=== PATIENT | female | born 1965 | race Asian ===

== ENCOUNTER 2017-03-06 12:01 | Inpatient (IN) | payer OTHER ==
[~2017-03-06] VITALS: Ht 157.5 cm; Wt 85.0 kg
[2017-03-06] MEDS ORDERED: SODIUM CHLORIDE 0.9% 1,000ML IVBOLUS ONE ×2 (12:30→14:00)
[2017-03-06] MEDS ORDERED: ONDANSETRON 2MG/ML, 2ML IVPush ONE (12:30)
[2017-03-06] MEDS ORDERED: SODIUM CHLORIDE FLUSH 10ML SYR IVF ONE (12:30)
[2017-03-06] MEDS ORDERED: ACETAMINOPHEN 500 MG TABLET PO ONE (12:30)
[2017-03-06 12:34] LABS: HEMOGLOBIN 15.4 g/dL (11.7-16.4)
[2017-03-06 13:16] LABS: BLOOD UREA NITROGEN 13 mg/dL (7-18)
[2017-03-06] MEDS ORDERED: ACETAMINOPHEN 500 MG TABLET ONE (13:43)
[2017-03-06] MEDS ORDERED: CEFTRIAXONE PMX 1GM/50ML 50 ML IVPB ONE (14:00)
[2017-03-06] MEDS ORDERED: CEFTRIAXONE PMX 1GM/50ML 50 ML ONE (15:08)
[2017-03-06] MEDS ORDERED: IBUPROFEN 200 MG TABLET ONE (15:09)
[2017-03-06] MEDS ORDERED: IBUPROFEN 200 MG TABLET PO ONE (15:30)
[2017-03-06] MEDS ORDERED: SODIUM CHLORIDE 0.9% 1,000 ML IV SCH (17:15)
[2017-03-06] MEDS ORDERED: OXYcodone IR 5MG TABLET PO PRN (17:30)
[2017-03-06] MEDS ORDERED: HEPARIN 5,000 UNITS/ML, 1ML SQ SCH (17:30)
[2017-03-06] MEDS ORDERED: ENALAPRILAT 1.25 MG/ML, 2ML IVPush PRN (17:30)
[2017-03-06] MEDS ORDERED: ONDANSETRON 2MG/ML, 2ML IVPush PRN (17:30)
[2017-03-06] MEDS ORDERED: hydrALAzine 20 MG/ML, 1ML IVPush PRN (17:30)
[2017-03-06] MEDS ORDERED: morphine SULFATE 10 MG/ML, 1ML IVPush PRN (17:30)
[2017-03-06] MEDS ORDERED: CEFTRIAXONE PMX 1GM/50ML 50 ML IV SCH (17:30)
[2017-03-06] MEDS ORDERED: BISACODYL 10 MG SUPP PR PRN (17:30)
[2017-03-06] MEDS ORDERED: POLYETHYLENE GLYCOL 17 GM PACKET PO PRN (17:30)
[2017-03-06] MEDS ORDERED: morphine SULFATE 10 MG/ML, 1ML ONE (20:44)
[2017-03-06] MEDS ORDERED: ONDANSETRON 2MG/ML, 2ML ONE (20:45)
[2017-03-06] MEDS ORDERED: HEPARIN 5,000 UNITS/ML, 1ML ONE (20:45)
[2017-03-07] MEDS ORDERED: CEFTRIAXONE PMX 1GM/50ML 50 ML ONE (02:09)
[2017-03-07] MEDS: CEFTRIAXONE PMX 1GM/50ML 50 ML IV SCH ×2 (02:15→16:27)
[2017-03-07] MEDS ORDERED: HEPARIN 5,000 UNITS/ML, 1ML ONE (05:05)
[2017-03-07] MEDS: HEPARIN 5,000 UNITS/ML, 1ML SQ SCH ×3 (05:12→22:09)
[2017-03-07 05:37] LABS: BLOOD UREA NITROGEN 15 mg/dL (7-18); HEMATOCRIT 39.8 % (34.6-47.8); HEMOGLOBIN 13.3 g/dL (11.7-16.4); WHITE BLOOD COUNT 12.6 x10^3/uL (3.4-10)
[2017-03-07 05:39] LABS: ASPARTATE AMINO TRANSFERASE 11 U/L (15-37)
[2017-03-07] MEDS ORDERED: ACETAMINOPHEN 500 MG TABLET ONE (10:27)
[2017-03-07] MEDS: ACETAMINOPHEN 325 MG TABLET PO PRN ×2 (10:31→18:09)
[2017-03-07 10:32] VITALS: BP 152/91
[2017-03-07 12:51] VITALS: BP 108/74
[2017-03-07] MEDS: POTASSIUM CHLORIDE 20 MEQ TAB.ER.PRT PO SCH (16:35)
[2017-03-07 20:00] VITALS: BP 121/82
[2017-03-08 02:00] VITALS: BP 144/90
[2017-03-08] MEDS: CEFTRIAXONE PMX 1GM/50ML 50 ML IV SCH ×2 (05:26→17:29)
[2017-03-08] MEDS: HEPARIN 5,000 UNITS/ML, 1ML SQ SCH ×3 (05:26→21:11)
[2017-03-08 05:29] LABS: HEMATOCRIT 37.5 % (34.6-47.8); HEMOGLOBIN 12.5 g/dL (11.7-16.4); WHITE BLOOD COUNT 9.6 x10^3/uL (3.4-10)
[2017-03-08 05:43] LABS: BLOOD UREA NITROGEN 11 mg/dL (7-18)
[2017-03-08 07:12] VITALS: BP 147/100
[2017-03-08] MEDS: POTASSIUM CHLORIDE 20 MEQ TAB.ER.PRT PO SCH (09:02)
[2017-03-08 13:40] VITALS: BP 135/96
[2017-03-08 20:00] VITALS: BP 149/99
[2017-03-08] MEDS: DOCUSATE 100 MG CAPSULE PO PRN (21:11)
[2017-03-09 01:40] VITALS: BP 130/82
[2017-03-09] MEDS: CEFTRIAXONE PMX 1GM/50ML 50 ML IV SCH (05:29)
[2017-03-09] MEDS: HEPARIN 5,000 UNITS/ML, 1ML SQ SCH ×2 (05:29→13:30)
[2017-03-09 06:30] VITALS: BP 141/90
[2017-03-09] MEDS: DOCUSATE 100 MG CAPSULE PO PRN (09:35)
[2017-03-09 13:03] VITALS: BP 161/110
[2017-03-09] MEDS ORDERED: SULF1TAB24 PO (13:40)
[2017-03-09] MEDS ORDERED: ATOR10TA PO (13:40)
== END 2017-03-09 14:59 | disposition home or self-care (01) | DRG 871 ==
LOC: ED 15:18 → EDIP 16:10 → 4WST 03-07 08:45 → DCLOUNGE 03-09 14:41
PROVIDERS: ADMIT Hospitalist; ATTEND Family Medicine
DX: A41.9 Sepsis, unspecified organism (principal); N17.0 Acute kidney failure with tubular necrosis; N12 Tubulo-interstitial nephritis, not specified as acute or chronic; E78.00 Pure hypercholesterolemia, unspecified; E78.5 Hyperlipidemia, unspecified; G43.909 Migraine, unspecified, not intractable, without status migrainosus; I10 Essential (primary) hypertension; R65.20 Severe sepsis without septic shock; Z90.710 Acquired absence of both cervix and uterus; Z88.0 Allergy status to penicillin
CPT/HCPCS: 36415; 71010; 80048; 80053; 80061; 81001; 82040; 83036; 83605; 83735; 84439; 84443; 85025; 87040; 87086; 96361; 96365; 96366; J0696; J1644; J2405; J7030

== ENCOUNTER 2020-04-09 19:25 | Inpatient (IN) | payer OTHER ==
[~2020-04-09] VITALS: Ht 157.5 cm; Wt 81.3 kg
[~2020-04-09 19:25] MED LIST: ATOR10TA PO; SULF1TAB24 PO
--- NOTE | 2020-04-09 19:48 | NUR ---
PT moved to room 30 via wheelchair, mild distress and weakness. placed on cr monitor, in gurney and gown on. pt calm and cooperative. good aeration and oxygenation at this time. on o2 nc 2 lpm, o2 sats 97%.
[2020-04-09] MEDS ORDERED: LIDOCAINE-MPF 1%, 5ML ONE (19:55)
[2020-04-09] MEDS ORDERED: BUPIVACAINE 0.25% ONE (19:55)
[2020-04-09] MEDS ORDERED: LIDOCAINE 1%, 10ML INFIL ONE (20:00)
[2020-04-09] MEDS ORDERED: BUPIVACAINE 0.25% INFIL ONE (20:00)
[2020-04-09] MEDS ORDERED: IBUPROFEN 800 MG TABLET ONE (20:13)
--- NOTE | 2020-04-09 20:16 | NUR ---
PT MEDICATED PER JUN. X RAY IN WITH PT AT THIS TIME
[2020-04-09] MEDS ORDERED: IBUPROFEN 800 MG TABLET PO ONE (20:30)
[2020-04-09] MEDS ORDERED: DOXYCYCLINE 100MG TABLET ONE (20:46)
[2020-04-09] MEDS ORDERED: DEXAMETHASONE 4 MG/ML, 1ML ONE (20:46)
[2020-04-09] MEDS ORDERED: CEFTRIAXONE PMX 1GM/50ML 50 ML ONE (20:46)
--- NOTE | 2020-04-09 20:58 | NUR ---
PT TO BE ADMITTED. PT EDUCATED ON PLAN OF CARE
[2020-04-09] MEDS ORDERED: DOXYCYCLINE 100MG TABLET PO ONE (21:00)
[2020-04-09] MEDS ORDERED: DEXAMETHASONE 4 MG/ML, 1ML IVPush ONE (21:00)
[2020-04-09] MEDS ORDERED: CEFTRIAXONE PMX 1GM/50ML 50 ML IVPB ONE (21:00)
--- NOTE | 2020-04-09 21:05 | NUR ---
ABX GIVEN AFTER BLOOD CULTURES DRAWN
[2020-04-09 21:21] LABS: BASOPHILS % (AUTO) 0 % (0-1); EOSINOPHILS % (AUTO) 0 % (1-7); LYMPHOCYTES % (AUTO) 5 % (22-44); MEAN CORPUSCULAR HEMOGLOBIN 29.2 pg (27.0-34.8); MEAN CORPUSCULAR HGB CONC 34.3 g/dL (32.4-35.8); MEAN PLATELET VOLUME 7.9 fL (7.4-10.4); MONOCYTES % (AUTO) 6 % (2-9); NEUTROPHILS % (AUTO) 89 % (42-75); PLATELET COUNT 272 x10^3/uL (130-400); RED BLOOD COUNT 5.41 x10^6/uL (3.82-5.3); RED CELL DISTRIBUTION WIDTH 13.3 % (9.6-15.2)
[2020-04-09 21:26] LABS: ALANINE AMINOTRANSFERASE 71 U/L (12-78); ALBUMIN 2.9 g/dL (3.4-5.0); ANION GAP 8 mmol/L (5-15); CALCIUM 8.9 mg/dL (8.5-10.1); CHLORIDE 99 mmol/L (98-107); CREATININE 1.18 mg/dL (0.55-1.02)
[2020-04-09 21:33] LABS: ALKALINE PHOSPHATASE 120 U/L (45-117); BILIRUBIN,TOTAL 0.7 mg/dL (0.2-1.0); D-DIMER (DIC) 0.58 ug/mlFEU (0.00-0.52)
[2020-04-09 22:06] LABS: MD SCAN
--- NOTE | 2020-04-09 23:22 | NUR ---
PT MOVED TO HOSPITAL BED, AWAITING ADMITTING MD.
[2020-04-10] MEDS ORDERED: DOCUSATE 100 MG CAPSULE PO PRN
[2020-04-10] MEDS ORDERED: ONDANSETRON 2MG/ML, 2ML IVPush PRN
[2020-04-10] MEDS ORDERED: morphine SULFATE 10 MG/ML, 1ML IVPush PRN
[2020-04-10] MEDS ORDERED: ACETAMINOPHEN 325 MG TABLET PO PRN
[2020-04-10] MEDS ORDERED: POLYETHYLENE GLYCOL 17 GM PACKET PO PRN
[2020-04-10] MEDS ORDERED: ENOXAPARIN 40 MG/0.4 ML SQ SCH
[2020-04-10] MEDS ORDERED: ONDANSETRON ODT 4 MG PO PRN
[2020-04-10] MEDS ORDERED: BISACODYL 10 MG SUPP PR PRN
[2020-04-10] MEDS ORDERED: OXYcodone IR 5MG TABLET PO PRN
[2020-04-10] MEDS ORDERED: PROMETHAZINE 25 MG/ML, 1ML IM PRN
[2020-04-10] MEDS ORDERED: hydrALAzine 20 MG/ML, 1ML IVPush PRN
[2020-04-10] MEDS ORDERED: ENOXAPARIN 40 MG/0.4 ML ONE ×2 (00:10→08:02)
[2020-04-10] MEDS ORDERED: ASCORBIC ACID 500 MG TABLET ONE ×3 (00:10→17:32)
[2020-04-10] MEDS ORDERED: MELATONIN 5 MG TABLET ONE (00:11)
[2020-04-10] MEDS: ASCORBIC ACID 500 MG TABLET PO SCH ×4 (00:17→22:39)
[2020-04-10] MEDS: SODIUM CHLORIDE 0.9% 1,000 ML IV SCH ×2 (00:17→10:18)
[2020-04-10] MEDS: MELATONIN 5 MG TABLET PO SCH ×2 (00:17→22:39)
--- NOTE | 2020-04-10 00:20 | NUR ---
PT PLACED ON HOSPITAL BED AND MEDICATED PER EMAR. VSS AND WILL CONT TO MONITOR.
--- NOTE | 2020-04-10 02:31 | NUR ---
PT SLEEPING ON HOSPITAL BED, NO ACUTE DISTRESS NOTED. VSS AND WILL CONT TO MONITOR.
--- NOTE | 2020-04-10 03:46 | NUR ---
PT SLEEPING, VSS, NO ACUTE DISTRESS NOTED. WILL CONT TO MONITOR.
--- NOTE | 2020-04-10 04:49 | NUR ---
Lab drawing blood, pt has no complaints at this time. VSS, o2 sats remain greater 95% on 2L. Pt is waiting for room upstairs. Her covid test was swabbed through [facility] and is pending with them, she was not reswabbed here.
[2020-04-10 05:27] LABS: BASOPHILS % (AUTO) 0 % (0-1); EOSINOPHILS % (AUTO) 0 % (1-7); LYMPHOCYTES % (AUTO) 9 % (22-44); MEAN CORPUSCULAR HGB CONC 33.8 g/dL (32.4-35.8); MONOCYTES % (AUTO) 4 % (2-9); NEUTROPHILS % (AUTO) 88 % (42-75); PLATELET COUNT 251 x10^3/uL (130-400); RED CELL DISTRIBUTION WIDTH 13.2 % (9.6-15.2)
[2020-04-10 05:28] LABS: MD NO
[2020-04-10 05:36] LABS: CHLORIDE 103 mmol/L (98-107)
[2020-04-10 05:50] LABS: ALANINE AMINOTRANSFERASE 73 U/L (12-78); ALBUMIN 2.7 g/dL (3.4-5.0); ALKALINE PHOSPHATASE 114 U/L (45-117); ANION GAP 9 mmol/L (5-15); BILIRUBIN,TOTAL 0.4 mg/dL (0.2-1.0); CALCIUM 8.9 mg/dL (8.5-10.1); CHOLESTEROL, TOTAL 191 mg/dL (140-239); CREATININE 1.61 mg/dL (0.55-1.02); HDL CHOL % 20 % (28-40); HDL CHOLESTEROL (DIRECT) 38 mg/dL (40-60); LDL CHOLESTEROL,CALCULATED 113 mg/dL (54-169); TOTAL PROTEIN 7.3 g/dL (6.4-8.2); TRIGLYCERIDES 198 mg/dL (50-200); VLDL CHOLESTEROL 40 mg/dL (0-25)
--- NOTE | 2020-04-10 06:12 | NUR ---
Sleeping, No change in assessment. Will continue to monitor.
--- NOTE | 2020-04-10 06:46 | NUR ---
Report to PREETI Wang
--- NOTE | 2020-04-10 07:34 | NUR ---
REPORT FROM PREETI CLARK. PT LAYING BACK IN BED, RESPIRATIONS EVEN AND UNLABORED ON NC. NAD NOTED AT THIS TIME. PT REMAINS ASLEEP. AWAITING MEAL TRAY.
[2020-04-10] MEDS ORDERED: CHOLECALCIFEROL 5,000u TAB ONE (08:03)
[2020-04-10] MEDS ORDERED: DEXAMETHASONE 4 MG/ML, 1ML ONE (08:03)
[2020-04-10] MEDS ORDERED: ZINC SULFATE 220 MG CAPSULE ONE (08:04)
[2020-04-10] MEDS: AZITHROMYCIN 500 MG in SODIUM CHLORIDE 0.9% 250 ML IV SCH (08:15)
[2020-04-10] MEDS: CHOLECALCIFEROL 5,000u TAB PO SCH (08:16)
[2020-04-10] MEDS: ZINC SULFATE 220 MG CAPSULE PO SCH (08:16)
[2020-04-10] MEDS: DEXAMETHASONE 4 MG/ML, 1ML IVPush SCH (08:16)
--- NOTE | 2020-04-10 08:58 | NUR ---
REPORT TO PREETI ALBERTO.
--- NOTE | 2020-04-10 09:00 | NUR ---
PT EATING MEAL TRAY AT THIS TIME, VSS, DENIES NEEDS.
[2020-04-10] MEDS: ENOXAPARIN 40 MG/0.4 ML SQ SCH (10:18)
--- NOTE | 2020-04-10 10:21 | NUR ---
PT MEDICATED PER JUN, ADMITTING MD IN TO EVAL PT. NO NEW ORDERS AT THIS TIME.
--- NOTE | 2020-04-10 12:36 | NUR ---
MED REQUEST SENT TO PHARMACY FOR LAVERN RUBALCAVA
[2020-04-10] MEDS: INSULIN LISPRO 100 UNITS/ML, PEN SQ-INSULIN SCH ×3 (13:30→20:25)
--- NOTE | 2020-04-10 13:40 | NUR ---
LUNCH TRAY PROVIDED, PT MEDICATED WITH INSULIN PER MAR AND SS. NO OTHER NEEDS AT THIS TIME
--- NOTE | 2020-04-10 16:03 | NUR ---
PT. IS RESTING WITHOUT CONCERNS, CP MONITOR IN PLACE. PT. DENIES C/O PAIN. REPEAT BGL DONE BY REMY ÁLVAREZ. SIDERAILS REMAIN UP X 2 WITH THE CALL LIGHT IN PLACE. PT. IS ON A HOSPITAL BED.
--- NOTE | 2020-04-10 16:35 | NUR ---
PT. REQUESTED RN DIDI SPEAK WITH HER DAUGHTER CARMEN, WHO IS A COVID RN. PT. IS ASKING THAT CARMEN BE GIVEN HER MEDICAL INFORMATION. PT.'S DAUGHTER WAS UPDATED ON THE PT.'S LAB WORK AND CXR FINDINGS. DAUGHTER IS REQUESTING THAT THE PT. BE GIVEN AN IS. PT. WAS INSTRUCTED ON INCENTIVE SPIROMETER USE AND WAS ABLE TO COMPLETE 5 CYCLES. PT.'S DAUGHTER ALSO REQUESTING THAT THE HOSPITALIST BE CONTACTED FOR PRN NPPB TX WHICH WILL BE DONE. VITALS MONITORED. PT. HAS NO CONCERNS AT THIS TIME.
--- NOTE | 2020-04-10 17:46 | NUR ---
TASK RN: PT COVERED WITH INSULIN NOTED ON JUN AND PROVIDED DINNER
[2020-04-10] MEDS ORDERED: ALBUTEROL SULFATE 2.5 MG/3 ML NPPB PRN (18:30)
--- NOTE | 2020-04-10 18:31 | NUR ---
SPOKE WITH DR. CORDOBA ABOUT ALBUTEROL NEBS Q 4 HRS PRN. ORDERS RECEIVED AND CARRIED OUT. PT. IS EATING DINNER WITHOUT CONCERNS. MEDS GIVEN EARLIER BY ALYSE ÁLVAREZ.
--- NOTE | 2020-04-10 18:41 | NUR ---
PT. FINISHED HER MEAL AND IS RESTING WITHOUT CONCERNS. PT. REMAINS MONITORED. CALL LIGHT IS IN PLACE.
[2020-04-10] MEDS ORDERED: CEFTRIAXONE PMX 1GM/50ML 50 ML ONE (19:40)
[2020-04-10] MEDS: CEFTRIAXONE PMX 1GM/50ML 50 ML IV SCH (20:22)
--- NOTE | 2020-04-10 20:23 | NUR ---
PT.'S BGL CHECKED. 213. PT. HAS IV ROCEPHIN INFUSING AND REMAINS MONITORED. PT. IS USING THE BEDSIDE COMMODE. NO C/O PAIN OR DISCOMFORT AT THIS TIME.
--- NOTE | 2020-04-10 20:31 | NUR ---
INSULIN CHECKED BY 2 RNS AND GIVEN ORDERED.
[2020-04-10 22:29] VITALS: BP 146/95
[2020-04-11 01:41] VITALS: BP 136/91
[2020-04-11 05:49] LABS: ANION GAP 6 mmol/L (5-15); CHLORIDE 109 mmol/L (98-107)
[2020-04-11 05:50] LABS: CREATININE 0.86 mg/dL (0.55-1.02)
[2020-04-11] MEDS: ALBUTEROL HFA 90 MCG/SPRAY INH PRN ×2 (06:05→20:50)
[2020-04-11] MEDS: INSULIN LISPRO 100 UNITS/ML, PEN SQ-INSULIN SCH ×4 (07:00→20:35)
[2020-04-11 07:02] VITALS: BP 143/94
[2020-04-11] MEDS ORDERED: POTASSIUM CHLORIDE 20 MEQ TAB.ER.PRT PO ONE (07:30)
[2020-04-11] MEDS: ASCORBIC ACID 500 MG TABLET PO SCH ×3 (08:35→20:45)
[2020-04-11] MEDS: ZINC SULFATE 220 MG CAPSULE PO SCH (08:35)
[2020-04-11] MEDS: CHOLECALCIFEROL 5,000u TAB PO SCH (08:35)
[2020-04-11] MEDS: ENOXAPARIN 40 MG/0.4 ML SQ SCH (08:36)
[2020-04-11] MEDS: DEXAMETHASONE 4 MG/ML, 1ML IVPush SCH (08:36)
[2020-04-11] MEDS: AZITHROMYCIN 500 MG in SODIUM CHLORIDE 0.9% 250 ML IV SCH (09:00)
[2020-04-11] MEDS ORDERED: INSULIN NPH HUMAN 100 UNIT/ML, 3ML VIAL SQ-INSULIN SCH (12:30)
[2020-04-11 13:55] VITALS: BP 127/86
[2020-04-11] MEDS ORDERED: ASCORBIC ACID 250 MG TAB ONE (20:20)
[2020-04-11] MEDS: INSULIN GLARGINE 100 UNITS/ML, PEN SQ-INSULIN SCH (20:35)
[2020-04-11] MEDS: MELATONIN 5 MG TABLET PO SCH (20:45)
[2020-04-11] MEDS: CEFTRIAXONE PMX 1GM/50ML 50 ML IV SCH (20:45)
[2020-04-11 20:50] VITALS: BP 163/106
[2020-04-11 22:30] VITALS: BP 111/78
[2020-04-12 00:20] VITALS: BP 119/86
[2020-04-12 06:47] VITALS: BP 136/87
[2020-04-12] MEDS ORDERED: POTASSIUM CHLORIDE 20 MEQ TAB.ER.PRT PO ONE (07:00)
[2020-04-12] MEDS: AZITHROMYCIN 500 MG in SODIUM CHLORIDE 0.9% 250 ML IV SCH (08:43)
[2020-04-12] MEDS: ENOXAPARIN 40 MG/0.4 ML SQ SCH (08:43)
[2020-04-12] MEDS: INSULIN LISPRO 100 UNITS/ML, PEN SQ-INSULIN SCH ×4 (08:51→21:12)
[2020-04-12 12:00] LABS: RAPID INFLUENZA A Negative (Negative); RAPID INFLUENZA B Negative (Negative)
[2020-04-12 12:22] VITALS: BP 140/96
[2020-04-12] MEDS: CEFDINIR 300 MG CAPSULE PO SCH ×2 (12:29→21:11)
[2020-04-12 19:09] VITALS: BP 154/95
[2020-04-12] MEDS: MELATONIN 5 MG TABLET PO SCH (21:11)
[2020-04-12] MEDS: INSULIN GLARGINE 100 UNITS/ML, PEN SQ-INSULIN SCH (21:14)
[2020-04-13 01:47] VITALS: BP 153/92
[2020-04-13 06:50] VITALS: BP 152/108
[2020-04-13] MEDS: INSULIN LISPRO 100 UNITS/ML, PEN SQ-INSULIN SCH ×2 (07:52→12:22)
[2020-04-13] MEDS: ENOXAPARIN 40 MG/0.4 ML SQ SCH (07:53)
[2020-04-13] MEDS: CEFDINIR 300 MG CAPSULE PO SCH (07:53)
[2020-04-13 08:21] LABS: BASOPHILS % (AUTO) 0 % (0-1); EOSINOPHILS % (AUTO) 1 % (1-7); LYMPHOCYTES % (AUTO) 18 % (22-44); MEAN CORPUSCULAR HEMOGLOBIN 29.1 pg (27.0-34.8); MEAN CORPUSCULAR HGB CONC 33.9 g/dL (32.4-35.8); MEAN PLATELET VOLUME 7.1 fL (7.4-10.4); MONOCYTES % (AUTO) 14 % (2-9); NEUTROPHILS % (AUTO) 68 % (42-75); PLATELET COUNT 369 x10^3/uL (130-400); RED BLOOD COUNT 5.15 x10^6/uL (3.82-5.3); RED CELL DISTRIBUTION WIDTH 13.1 % (9.6-15.2)
[2020-04-13 08:23] LABS: MD NO
[2020-04-13 08:34] LABS: ALANINE AMINOTRANSFERASE 61 U/L (12-78); ANION GAP 6 mmol/L (5-15); CALCIUM 9.2 mg/dL (8.5-10.1); CHLORIDE 109 mmol/L (98-107)
[2020-04-13 08:36] LABS: ALKALINE PHOSPHATASE 83 U/L (45-117); BILIRUBIN,TOTAL 0.7 mg/dL (0.2-1.0); TOTAL PROTEIN 6.9 g/dL (6.4-8.2)
[2020-04-13] MEDS ORDERED: AZITHROMYCIN 250 MG TABLET PO SCH (09:00)
[2020-04-13] MEDS ORDERED: ALBU18HF INH (09:18)
[2020-04-13] MEDS ORDERED: CEFD300C37 PO (09:18)
[2020-04-13] MEDS ORDERED: METF750T42 PO (09:18)
[2020-04-13] MEDS ORDERED: AMLO-150 PO (09:18)
[2020-04-13] MEDS ORDERED: ATOR20TA37 PO (09:20)
[2020-04-13] MEDS ORDERED: AMLODIPINE 5 MG TABLET ONE (09:30)
[2020-04-13] MEDS ORDERED: POTASSIUM CHLORIDE 20 MEQ TAB.ER.PRT PO ONE (09:30)
[2020-04-13] MEDS ORDERED: AMLODIPINE 5 MG TABLET PO SCH (09:30)
[2020-04-13] MEDS ORDERED: POTASSIUM CHLORIDE 20 MEQ TAB.ER.PRT ONE (09:30)
[2020-04-13 09:33] VITALS: BP 152/102
[2020-04-13 10:55] VITALS: BP 150/99
== END 2020-04-13 12:15 | disposition home or self-care (01) | DRG 193 ==
LOC: ED 22:00 → EDIP 22:37 → 4WST 04-10 22:15
PROVIDERS: ADMIT Internal Medicine; ATTEND Hospitalist
DX: J12.9 Viral pneumonia, unspecified (principal); J96.01 Acute respiratory failure with hypoxia; N17.0 Acute kidney failure with tubular necrosis; E78.5 Hyperlipidemia, unspecified; Z20.828 Contact with and (suspected) exposure to other viral communicable diseases; E87.6 Hypokalemia; G43.909 Migraine, unspecified, not intractable, without status migrainosus; R73.9 Hyperglycemia, unspecified; I10 Essential (primary) hypertension; Z90.710 Acquired absence of both cervix and uterus; Z88.0 Allergy status to penicillin
CPT/HCPCS: 36415; 71045; 80048; 80053; 80061; 82728; 82962; 83036; 83605; 83615; 83735; 84145; 84443; 85025; 85049; 85379; 85384; 85610; 85730; 86140; 87040; 87400; 93005; 96374; 96375; G0378; J0456; J0696; J1100; J1650; J0360; J1815; J7030; J7050; U0003

== ENCOUNTER 2020-08-06 08:01 | Outpatient (CLI) | payer OTHER ==
[~2020-08-06 08:01] MED LIST changes: +ALBU18HF INH; +AMLO-150 PO; +ATOR20TA37 PO; +CEFD300C37 PO; +METF750T42 PO
[2020-08-06 08:23] LABS: CHLORIDE 109 mmol/L (98-107)
[2020-08-06 08:43] LABS: ANION GAP 6 mmol/L (5-15); CALCIUM 9.7 mg/dL (8.5-10.1)
[2020-08-06 08:44] LABS: ALANINE AMINOTRANSFERASE 21 U/L (12-78); ALKALINE PHOSPHATASE 97 U/L (45-117); BILIRUBIN,TOTAL 0.3 mg/dL (0.2-1.0); CHOL/HDL RATIO 3.9; CHOLESTEROL, TOTAL 231 mg/dL (140-239); CREATININE 0.99 mg/dL (0.55-1.02); HDL CHOL % 26 % (28-40); HDL CHOLESTEROL (DIRECT) 59 mg/dL (40-60); LDL CHOLESTEROL,CALCULATED 141 mg/dL (54-169); LDL/HDL RATIO 2.4 (0.5-3.0); TOTAL PROTEIN 7.5 g/dL (6.4-8.2); TRIGLYCERIDES 155 mg/dL (50-200); VLDL CHOLESTEROL 31 mg/dL (0-25)
== END 2020-08-06 23:59 | disposition home or self-care (01) ==
LOC: LAB 08:01
PROVIDERS: ATTEND Family Medicine
DX: E11.9 Type 2 diabetes mellitus without complications (principal); I10 Essential (primary) hypertension; E78.00 Pure hypercholesterolemia, unspecified; E04.9 Nontoxic goiter, unspecified
CPT/HCPCS: 36415; 80053; 80061; 82043; 82570; 83036; 84443; 86376